=== PATIENT | female | born 1960 | race Caucasian/White ===

== ENCOUNTER 2017-02-19 10:59 | Emergency (ER) | payer MEDICAID, MEDICARE ==
[2017-02-19 11:12] VITALS: BP 129/62
--- NOTE | 2017-02-19 12:04 | UC ---
General HPI - HPI Summary HPI Summary: Vertigo,headache, and nausea beginning today. NO focal numbness or weakness. no tinnitus or hearing loss. no ear pain. prior prior episodes. - History of Current Complaint Chief Complaint: UCDizziness Stated Complaint: HEADACHE,LIGHTHEADED Time Seen by Provider: 02/19/17 11:40 Hx Obtained From: Patient Hx Last Menstrual Period: n/a Onset/Duration: Gradual Onset, Lasting Hours Timing: Constant Onset Severity: Mild Current Severity: Moderate Character: spinning and imbalance sensation. Associated Signs & Symptoms: Positive: Dizziness, Headache. Negative: Confusion , Decreased Responsiveness, Diarrhea, Dysuria, Diaphoresis, Edema, Fever, Hemoptysis, Melena, Nausea, Palpitations, Recent Medication Changes, Syncope, SOB, Vomiting, Wheezing, Weakness - Allergy/Home Medications Allergies/Adverse Reactions: Allergies Allergy/AdvReac Type Severity Reaction Status Date / Time Penicillins Allergy Anaphylatic Verified 02/19/17 11:12 Shock Home Medications: Home Medications Atorvastatin* [Lipitor*] 20 mg PO DAILY 02/19/17 [History Confirmed 02/19/17] Hydrocodone-Acetaminophen [Hydrocodone Bitartrate/AC 2.5-325 mg] 1 tab PO QID [History Confirmed 02/19/17] Lisinopril/HCTZ 20/12.5(NF) [Zestoretic 20/12.5(NF)] 1 tab PO DAILY 02/19/17 [ History Confirmed 02/19/17] metFORMIN* [Glucophage 1000 MG TAB *] 1,000 mg PO BID 02/19/17 [History Confirmed 02/19/17] PMH/Surg Hx/FS Hx/Imm Hx Previously Healthy: No - Surgical History Surgical History: Yes Surgery Procedure, Year, and Place: 2 . hysterectomy. left rotator cuff repair. bladder sling - Family History Known Family History: Positive: Other - denies hx of vertigo. - Social History Occupation: Employed Full-time Alcohol Use: None Substance Use Type: None Smoking Status (MU): Heavy Every Day Tobacco Smoker Type: Cigarettes Amount Used/How Often: 1/2ppd - Immunization History Most Recent Influenza Vaccination: no Review of Systems Neurological: Other - vertigo. All Other Systems Reviewed And Are Negative: Yes Physical Exam Triage Information Reviewed: Yes Appearance: Well-Appearing, No Pain Distress, Well-Nourished Vital Signs: Initial Vital Signs Temp 98.2 F 02/19/17 11:04 Pulse 64 02/19/17 11:04 Resp 16 02/19/17 11:04 BP 129/62 02/19/17 11:04 Pulse Ox 100 02/19/17 11:04 Vital Signs Reviewed: Yes Eyes: Positive: Conjunctiva Clear, Other: - no nystagmus. ENT: Positive: Pharynx normal, TMs normal. Negative: Pharyngeal erythema, Nasal congestion, Nasal drainage Neck: Positive: Supple, Nontender, No Lymphadenopathy Respiratory: Positive: Normal breath sounds, No respiratory distress, No accessory muscle use. Negative: Respiratory distress Cardiovascular: Positive: RRR, No Murmur, Pulses Normal, Other: - no carotid bruits [place]. Abdomen Description: Positive: Nontender, Soft. Negative: CVA Tenderness (R), CVA Tenderness (L), Distended Musculoskeletal: Positive: Strength Intact, ROM Intact, No Edema Neurological Exam: Other - CN III-XII intact. Finger to nose intact [place]. Neg pronator drift. she ambulates without wide based gait whilein high heals. Neurological: Positive: Alert, Muscle Tone Normal. Negative: Fatigued, Lethargic Skin: Negative: rashes Course/Dx - Course Course Of Treatment: Exam and vitals benign. she has vertigo without signs or symptoms of cva. she will try meclizine and two days off from work. - Differential Dx - Multi-Symptom Differential Diagnoses: CVA Provider Diagnoses: vertigo Discharge - Discharge Plan Condition: Good Disposition: HOME Prescriptions: Meclizine TAB* [Antivert 12.5 TAB*] 25 mg PO TID PRN #21 tab PRN Reason: Vertigo Patient Education Materials: Vertigo (ED) Referrals: Ron Dan MD [Medical Doctor] -
== END 2017-02-19 12:02 | disposition home or self-care (01) ==
LOC: UCCORT 10:59
DX: R42 Dizziness and giddiness (principal); F17.210 Nicotine dependence, cigarettes, uncomplicated; Z88.0 Allergy status to penicillin
CPT/HCPCS: 99202; G0463